=== PATIENT | female | born 1955 | race African-American/Black ===

== ENCOUNTER 2017-06-22 15:43 | Emergency (ER) | payer MEDICARE, BC ==
[~2017-06-22] VITALS: Ht 162.6 cm; Wt 75.0 kg
[2017-06-22] MEDS ORDERED: KETOROLAC 60MG/2ML VIAL IM ONE (20:15)
[2017-06-22] MEDS ORDERED: LORAZEPAM 1MG TABLET PO ONE (20:15)
[2017-06-22 21:13] LABS: BASOPHILS % 0.3 % (0.0-2.0); EOSINOPHILS % 0.9 % (0.0-5.0); HEMATOCRIT. 36.8 % (36.0-48.0); HEMOGLOBIN. 12.2 g/dL (12.0-16.0); LYMPHOCYTES % 29.5 % (20.0-50.0); MEAN CORPUSCULAR HEMOGLOBIN 30.7 pg (28.0-32.0); MEAN CORPUSCULAR VOLUME 92.5 fL (81.0-99.0); MONOCYTES % 11.5 % (2.0-8.0); NEUTROPHILS % 57.8 % (40.0-76.0); PLATELET 95 x1000/uL (130-400); RED BLOOD CELL COUNT 3.97 mill/uL (4.2-5.4); RED CELL DISTRIBUTION WIDTH 20.1 % (11.6-14.6)
[2017-06-22 21:28] LABS: CHLORIDE 105 mEq/L (98-107); ETHANOL BLOOD < 10 mg/dL
[2017-06-22] MEDS ORDERED: POTASSIUM CHLORIDE 20MEQ TABLET SR PO ONE (22:00)
[2017-06-23 00:23] VITALS: BP 100/64
== END 2017-06-22 19:00 | disposition home or self-care (01) ==
LOC: ER 15:43
DX: M54.5 Low back pain (principal); G89.29 Other chronic pain; R91.1 Solitary pulmonary nodule; E87.6 Hypokalemia; F99 Mental disorder, not otherwise specified
CPT/HCPCS: 36415; 71045; 80053; 85025; 96372; 99285; G0482; J1885